=== PATIENT | male | born 1980 | race Hispanic/Latino ===

== ENCOUNTER 2020-05-11 03:30 | Emergency (ER) | payer SELFPAY | END 2020-05-11 04:20 | disposition home or self-care (01) | LOC: ERS 03:30 | DX: H60.92 Unspecified otitis externa, left ear (principal) | CPT/HCPCS: 99282 ==

== ENCOUNTER 2025-04-08 12:14 | Outpatient (CLI) | payer OTHER | END 2025-04-08 12:15 | disposition home or self-care (01) | LOC: RAD 12:14 | PROVIDERS: ATTEND Nurse Practitioner Family | DX: M25.571 Pain in right ankle and joints of right foot (principal); M19.071 Primary osteoarthritis, right ankle and foot; M77.31 Calcaneal spur, right foot ==